=== PATIENT | female | born 1950 | race Caucasian/White ===

== ENCOUNTER → 2019-06-12 | Outpatient (CLI) | payer OTHER ==
[~2019-06-12] MED LIST: AMBIEN 10 MG TA10 MG PO; JUICE PLUS PO; PERCOCET 5-3251 EACH PO
== END ==
LOC: RAD 09:16 → EDSTATUS 09:47 → RAD 11:38
DX: M47.812 Spondylosis without myelopathy or radiculopathy, cervical region (principal); K21.9 Gastro-esophageal reflux disease without esophagitis

== ENCOUNTER → 2021-04-28 | Outpatient (CLI) | payer OTHER | LOC: SJCVC 14:01 | PROVIDERS: ATTEND Internal Medicine Cardiovascular Disease | DX: R94.31 Abnormal electrocardiogram [ECG] [EKG] (principal); I44.7 Left bundle-branch block, unspecified; I49.1 Atrial premature depolarization; R01.1 Cardiac murmur, unspecified; R06.00 Dyspnea, unspecified; E78.00 Pure hypercholesterolemia, unspecified; K21.9 Gastro-esophageal reflux disease without esophagitis; E78.5 Hyperlipidemia, unspecified; Z79.899 Other long term (current) drug therapy; Z82.49 Family history of ischemic heart disease and other diseases of the circulatory system ==

== ENCOUNTER → 2021-05-05 | Outpatient (CLI) | payer OTHER ==
[~2021-05-05] MED LIST changes: +ASA81BEC PO; +COREG6.25 MG PO; +COZAAR 25 MG TA25 MG PO; +FUROSEMIDE 20 M20 MG PO; +INTERMEZZO3.5 MG SUBLING; +NEXIUM 24HR20 M1 PO
== END ==
LOC: SJCVCIMAG 09:54
PROVIDERS: ATTEND Internal Medicine Cardiovascular Disease
DX: I49.3 Ventricular premature depolarization (principal); I08.1 Rheumatic disorders of both mitral and tricuspid valves; I44.7 Left bundle-branch block, unspecified; R94.39 Abnormal result of other cardiovascular function study; I42.9 Cardiomyopathy, unspecified; R06.00 Dyspnea, unspecified; E78.00 Pure hypercholesterolemia, unspecified; E78.5 Hyperlipidemia, unspecified; E11.9 Type 2 diabetes mellitus without complications; I10 Essential (primary) hypertension; Z79.82 Long term (current) use of aspirin; Z79.899 Other long term (current) drug therapy

== ENCOUNTER → 2021-05-10 | Outpatient (CLI) | payer OTHER ==
[~2021-05-10] VITALS: Ht 170.2 cm; Wt 65.3 kg
[2021-05-10 09:07] VITALS: BP 124/54
[2021-05-10 10:53] LABS: BE(vivo) -0.2 mmol/L (-2 to +3); HCO3 26.2 mmol/L (22.0-26.0); PCO2 VENOUS 49.6 mmHg (41.0-51.0)
[2021-05-10 10:55] LABS: BE(vivo) -1.8 mmol/L (-2 to +3); PCO2 44.6 mmHg (35.0-45.0); PO2 116.6 mmHg (80.0-100.0); pH 7.348 (7.360-7.450)
--- NOTE | 2021-05-10 14:03 | CATHLAB ---
[facility] [place] [address] INVASIVE PROCEDURE REPORT Name: LOLI VELASQUEZ Room #: PRE [facility].#: [id number] Admission: Attend Phys: Jessee Burgos MD Discharge: Date of : 52 Report #: [id number] THIS REPORT FOR: cc: Efren Collazo MD, Christopher B. MD Park, Jin S. MD ~ APPROVED REPORT Study performed: 05/10/2021 08:48:23 Patient Details Patient Status: Out-Patient Room #: The patient is a 70 year-old female Event Personnel Jessee Burgos Director Of Operations, [place], RTR Monitor, Simi Joshua Ramos, Dexter RN dairy technologist Performed Sven Access - R femoral vein Art Access - R femoral artery* Right and Left Heart Cath w/or w/o Coronarie [id number] [facility] Hemostasis with Manual pressure 41743 Initial Mod Sed Same Phys/QHP Gr5y [id number] Mod Sed Same Phys/QHP Ea [id number] Indication CHF Current Status: , Dyspnea, CardiomyopathyPositive stress test Risk Factors Hypercholesterolemia Procedure Narrative The Right Groin^ was infiltrated with 1% Lidocaine subcutaneous anesthesia. A PINNACLE 4FR Sheath #[id number] sheath was inserted into the RFA. Coronary angiography was performed using coronary diagnostic catheters. The right coronary system was accessed and visualized with a JR4 catheter. The left coronary system was accessed and visualized with a JL4 catheter. The left ventricle was accessed and visualized with a JR4 catheter. Hemostasis was obtained with manual pressure following sheath removal without any complications. The patient tolerated the procedure well and there were no complications associated with the procedure. There was no hematoma. Intraoperative Conscious Sedation [facility] [email or web address] [address] INVASIVE PROCEDURE REPORT Name: LOLI VELASQUEZ Room #: PRE [facility]#: [id number] Admission: Attend Phys: Jessee Burgos MD Discharge: Date of : 52 Report #: [id number] Sedation start time: 10:31 Case end Time: 11:17 Fentanyl 50 mcg Versed 1 mg Fluoro Time: 3.90 minutes Dose: DAP 3241.30 cGycm2 395 mGy Contrast Type and Amount: Omnipaque 40 ml Coronary Angiography The patient's coronary anatomy is right dominant. Diagnostic Cath Left Main The left main artery is a large-caliber vessel, appears angiographically normal. LAD The LAD is a moderate-sized caliber vessel, traverses the anterior wall and wraps around the apex. There is a minimal plaque in the midsegment. Diagonal 1 This is a moderate-sized caliber vessel, originates from the mid LAD segment. This vessel is patent with no flow-limiting lesions. This vessel supplies multiple branches as it courses down the anterolateral wall. Circumflex This is a moderate-sized caliber vessel, with a minimal plaque in the proximal segment. OM1 This is a small to moderate-sized caliber vessel, patent with no flow-limiting lesions. OM2 This is a moderate-sized caliber vessel, patent with no flow-limiting lesions. This vessel supplies multiple branches. Right Coronary The RCA is a dominant vessel, appears angiographically normal. R PDA This is a small to moderate-sized caliber vessel, patent with no flow-limiting lesions. RPLV This is a small to moderate-sized caliber vessel, patent with no flow-limiting lesions. Left Ventriculography Left Ventriculography was not performed. Ejection Fraction was 15-20% based off patient's Echocardiogram. An LVEDP was measured and there is no gradient across the outflow tract. Hemodynamics The right atrial mean pressure is 6 mmHg. The right ventricular pressure is 27/5 mmHg. The pulmonary artery pressure is 38/12 mmHg with a mean of 23 mmHg. The mean pulmonary capillary wedge pressure is 19 mmHg. The aortic pressure is 118/61 mmHg with a mean of 86 mmHg. The left ventricular pressure is 123/16 mmHg with a mean of mmHg. The left ventricular end diastolic pressure is [address] [place] [address] INVASIVE PROCEDURE REPORT Name: LOLI VELASQUEZ Room #: PRE [facility]#: [id number] Admission: Attend Phys: Jessee Burgos MD Discharge: Date of : 52 Report #: [id number] saturation is 71.40 %. Arterial saturation is 97.20 %. The cardiac output using the Lindsay method is 3.37 L/min. The cardiac index using the Lindsay method is 1.92 L/min/m2. Conclusion 1. There is minimal, nonobstructive disease in the LAD and left circumflex arteries. 2. Right-sided hemodynamics as measured. 3. Severe nonischemic cardiomyopathy. 4. Recommend guideline directed medical therapy. <ELECTRONICALLY SIGNED> By: Jessee Burgos MD 05/10/21 1403 1403 1403 Jessee Burgos MD /INF
== END | disposition home or self-care (01) ==
LOC: CATH 08:00
PROVIDERS: ATTEND Internal Medicine Cardiovascular Disease
DX: R94.39 Abnormal result of other cardiovascular function study (principal); I25.10 Atherosclerotic heart disease of native coronary artery without angina pectoris; I42.9 Cardiomyopathy, unspecified; R06.00 Dyspnea, unspecified; I50.9 Heart failure, unspecified; E78.00 Pure hypercholesterolemia, unspecified; K21.9 Gastro-esophageal reflux disease without esophagitis; E78.5 Hyperlipidemia, unspecified; Z98.890 Other specified postprocedural states; Z79.899 Other long term (current) drug therapy; Z87.891 Personal history of nicotine dependence; Z79.82 Long term (current) use of aspirin

== ENCOUNTER → 2021-06-21 | Outpatient (CLI) | payer OTHER | LOC: SJCVCIMAG 12:49 | PROVIDERS: ATTEND Internal Medicine Cardiovascular Disease | DX: I08.1 Rheumatic disorders of both mitral and tricuspid valves (principal); R94.31 Abnormal electrocardiogram [ECG] [EKG]; I44.7 Left bundle-branch block, unspecified; I25.10 Atherosclerotic heart disease of native coronary artery without angina pectoris; I42.8 Other cardiomyopathies; E78.00 Pure hypercholesterolemia, unspecified; R06.00 Dyspnea, unspecified; Z79.82 Long term (current) use of aspirin; Z79.899 Other long term (current) drug therapy ==